=== PATIENT | male | born 1955 | race Caucasian/White ===

== ENCOUNTER 2017-09-10 08:05 | Emergency (ER) | payer MEDICAID ==
[~2017-09-10] VITALS: Ht 172.7 cm; Wt 78.0 kg
[2017-09-10] MEDS ORDERED: PEMB100V IV (08:14)
[2017-09-10] MEDS ORDERED: HYDR25TA PO (08:14)
[2017-09-10] MEDS ORDERED: PANT40TA4 PO (08:14)
[2017-09-10 08:53] LABS: HEMATOCRIT. 40.5 % (42.0-52.0); HEMOGLOBIN. 13.9 g/dL (14.0-18.0); MEAN CORPUSCULAR HEMOGLOBIN 28.5 pg (28.0-32.0); MEAN CORPUSCULAR VOLUME 82.8 fL (80.0-94.0); PLATELET 118 x1000/uL (130-400); RED BLOOD CELL COUNT 4.88 mill/uL (4.7-6.1); RED CELL DISTRIBUTION WIDTH 15.8 % (11.6-14.6)
[2017-09-10 09:12] LABS: CARBON DIOXIDE 30 mEq/L (21-32); CHLORIDE 93 mEq/L (98-107); TROPONIN I < 0.02 ng/mL (0.00-0.04)
[2017-09-10 09:50] LABS: PROTHROMBIN TIME 10.7 sec (9.4-11.6)
[2017-09-10 10:00] LABS: PLATELET ESTIMATE SLIGHTLY DECREASED
[2017-09-10] MEDS ORDERED: SODIUM CHLORIDE 0.9% 1,000 ML IV ONE ×2 (11:30→13:45)
[2017-09-10] MEDS ORDERED: IOHEXOL-350 100 ML BOTTLE ONE (12:35)
[2017-09-10] MEDS ORDERED: DIAZEPAM 5 MG/ML 2ML CPJ IV ONE (13:45)
[2017-09-10] MEDS ORDERED: AZITHROMYCIN 500 MG TABLET PO ONE (16:45)
[2017-09-10 17:28] VITALS: BP 158/76
== END 2017-09-10 17:29 | disposition home or self-care (01) ==
LOC: ER 08:21
DX: J18.9 Pneumonia, unspecified organism (principal); K85.20 Alcohol induced acute pancreatitis without necrosis or infection; R42 Dizziness and giddiness; F10.239 Alcohol dependence with withdrawal, unspecified; E87.1 Hypo-osmolality and hyponatremia; E87.6 Hypokalemia; D72.829 Elevated white blood cell count, unspecified; D69.6 Thrombocytopenia, unspecified; I10 Essential (primary) hypertension; F32.9 Major depressive disorder, single episode, unspecified; Z91.19 Patient's noncompliance with other medical treatment and regimen
CPT/HCPCS: 36415; 70450; 71010; 71275; 80053; 83690; 83880; 84484; 85025; 85379; 85610; 93005; 96360; 96361; 99285; Q9967; Z7610; J7030

== ENCOUNTER 2019-06-03 10:29 | Emergency (ER) | payer MEDICARE, MEDICAID ==
[~2019-06-03] VITALS: Ht 170.2 cm; Wt 75.0 kg
[~2019-06-03 10:29] MED LIST: HYDR25TA PO; PANT40TA4 PO; PEMB100V IV
[2019-06-03] MEDS ORDERED: KETOROLAC 30MG/ML VIAL IV ONE (11:45)
[2019-06-03 11:50] LABS: BASOPHILS % 0.4 % (0.0-2.0); EOSINOPHILS % 0.5 % (0.0-5.0); HEMATOCRIT. 40.7 % (42.0-52.0); HEMOGLOBIN. 14.2 g/dL (14.0-18.0); LYMPHOCYTES % 26.4 % (20.0-50.0); MEAN CORPUSCULAR HEMOGLOBIN 30.6 pg (28.0-32.0); MEAN CORPUSCULAR VOLUME 87.8 fL (80.0-94.0); MEAN PLATELET VOLUME 8.7 fl (7.4-10.4); MONOCYTES % 9.3 % (2.0-8.0); NEUTROPHILS % 63.4 % (40.0-76.0); PLATELET 187 x1000/uL (130-400); RED BLOOD CELL COUNT 4.64 mill/uL (4.7-6.1); RED CELL DISTRIBUTION WIDTH 15.2 % (11.6-14.6)
[2019-06-03 11:54] LABS: CHLORIDE 106 mEq/L (98-107)
[2019-06-03 11:58] LABS: ETHANOL BLOOD 263 mg/dL
[2019-06-03 11:58] LABS: BG BASE EXCESS -1.4 mmol/L (-2.0-2.0); BG CARBOXYHEMOGLOBIN 1.4 % (0.5-1.5); BG DEOXYHEMOGLOBIN 4.1 % (0.0-5.0); BG HCO3 ACT 22.7 mmol/L (22.0-26.0); BG METHEMOGLOBIN 0.1 % (0.0-1.5); BG OXYGEN SATURATION 95.8 % (92.0-98.5); BG OXYHEMOGLOBIN 94.4 % (94.0-97.0); BG PCO2 36.5 mmHg (35.0-45.0); BG PH 7.412 (7.350-7.450); BG SAMPLE SITE RIGHT RADIAL; BG TOTAL HEMOGLOBIN 14.1 g/dL (12.0-18.0); BG VENT MODE ROOM AIR
[2019-06-03 13:15] LABS: *BARBITURATES SCREEN URINE NEGATIVE (NEGATIVE); *BENZODIAZEPINES SCREEN URINE NEGATIVE (NEGATIVE); *COCAINE SCREEN URINE NEGATIVE (NEGATIVE)
[2019-06-03 13:16] LABS: *AMPHETAMINES SCREEN URINE NEGATIVE (NEGATIVE); CANNABINOID URINE SCREEN NEGATIVE (NEGATIVE); METHADONE URINE SCREEN NEGATIVE (NEGATIVE); OPIATES URINE SCREEN NEGATIVE (NEGATIVE); PHENCYCLIDINE URINE SCREEN NEGATIVE (NEGATIVE)
[2019-06-03] MEDS ORDERED: ONDANSETRON 4MG ODT PO STA (14:48)
[2019-06-03] MEDS ORDERED: VISCOUS LIDOCAINE 2% 15 ML UDC PO STA (14:48)
[2019-06-03] MEDS ORDERED: MAGNESIUM/ALUMINUM HYDROXIDE/SIMETHICONE 30ML UDC PO STA ×2 (14:48)
[2019-06-03 15:20] VITALS: BP 150/72
== END 2019-06-03 15:24 | disposition home or self-care (01) ==
LOC: ER 10:29
DX: R07.89 Other chest pain (principal); F10.129 Alcohol abuse with intoxication, unspecified; Y90.0 Blood alcohol level of less than 20 mg/100 ml; I10 Essential (primary) hypertension; I25.2 Old myocardial infarction; Z90.49 Acquired absence of other specified parts of digestive tract; Z79.899 Other long term (current) drug therapy
CPT/HCPCS: 36415; 36600; 71045; 80053; 80305; 80320; 82375; 82805; 83880; 84484; 85025; 93005; 96374; 99284; J1885; Q0162; G0480

== ENCOUNTER 2025-07-27 18:07 | Emergency (ER) | payer OTHER, MEDICAID ==
[~2025-07-27] VITALS: Ht 175.3 cm; Wt 77.0 kg
[~2025-07-27 18:07] MED LIST changes: -PANT40TA4 PO; +PANT40TA51 PO
[2025-07-27 18:16] VITALS: O2SAT 99
[2025-07-27] MEDS: LEVETIRACETAM 500MG PREMIX 100 ML IV ONE (19:21)
[2025-07-27 20:00] VITALS: TEMP 37.2
[2025-07-27 20:05] LABS: HEMATOCRIT. 40.5 % (42.0-52.0); HEMOGLOBIN. 13.4 g/dL (14.0-18.0); MEAN PLATELET VOLUME 9.3 fl (7.4-10.4); PLATELET 223 x1000/uL (130-400); RED BLOOD CELL COUNT 4.73 mill/uL (4.7-6.1); RED CELL DISTRIBUTION WIDTH 14.6 % (11.6-14.6)
[2025-07-27 20:21] LABS: CREATININE 1.1 mg/dL (0.6-1.3); UREA NITROGEN BLOOD 10 mg/dL (9-23)
[2025-07-27 20:23] LABS: ASPARTATE AMINOTRANSFERASE 36 IU/L (<34); BILIRUBIN TOTAL 0.4 mg/dL (0.1-1.0); PROTEIN TOTAL 7.3 g/dL (6.0-8.3)
[2025-07-27 20:43] LABS: BAND% 1.0 % (1.0-6.0); LYMPHOCYTES % MANUAL 8.0 % (20.0-50.0); MONOCYTES % MANUAL 7.0 % (2.0-8.0); NEUTROPHILS % MANUAL 84.0 % (45.0-75.0); PLATELET ESTIMATE NORMAL
[2025-07-27] MEDS ORDERED: LEVE1000 MT (21:17)
[2025-07-27] MEDS: LEVETIRACETAM 500MG TABLET PO ONE (21:46)
[2025-07-27 22:30] VITALS: BP 131/65; PULSE 69; RESP 15; O2SAT 100
== END 2025-07-27 22:32 | disposition home or self-care (01) ==
LOC: EDBD → ER 18:07 → CMPBEDREQ 23:08
DX: G40.909 Epilepsy, unspecified, not intractable, without status epilepticus (principal); I10 Essential (primary) hypertension; Z98.890 Other specified postprocedural states; Z90.49 Acquired absence of other specified parts of digestive tract; Z79.899 Other long term (current) drug therapy
CPT/HCPCS: 99285; 96365; 70450; 71045; 80053; 83605; 83735; 85025; 87040; 36415; 84145; 93005; J1953

== ENCOUNTER 2025-09-14 17:51 | Emergency (ER) | payer OTHER, MEDICAID ==
[~2025-09-14] VITALS: Ht 167.6 cm; Wt 62.0 kg
[~2025-09-14 17:51] MED LIST changes: +LEVE1000 MT
[2025-09-14 17:54] VITALS: O2SAT 100
[2025-09-14] MEDS: LEVETIRACETAM 500MG PREMIX 100 ML IV ONE (18:57)
[2025-09-14 19:21] LABS: BASOPHILS % 0.4 % (0.0-2.0); EOSINOPHILS % 1.1 % (0.0-5.0); HEMATOCRIT. 38.1 % (42.0-52.0); HEMOGLOBIN. 12.6 g/dL (14.0-18.0); LYMPHOCYTES % 10.1 % (20.0-50.0); MEAN PLATELET VOLUME 8.8 fl (7.4-10.4); MONOCYTES % 7.6 % (2.0-8.0); NEUTROPHILS % 80.8 % (40.0-76.0); PLATELET 222 x1000/uL (130-400); RED BLOOD CELL COUNT 4.52 mill/uL (4.7-6.1); RED CELL DISTRIBUTION WIDTH 14.7 % (11.6-14.6)
[2025-09-14 19:30] LABS: CLARITY URINE CLEAR (CLEAR); GLUCOSE URINE NEGATIVE (NEGATIVE); KETONES URINE NEGATIVE (NEGATIVE); LEUKOCYTE ESTERASE URINE NEGATIVE (NEGATIVE); NITRITE URINE NEGATIVE (NEGATIVE); OCCULT BLOOD URINE NEGATIVE (NEGATIVE); PH URINE 6.0 (4.5-8.0); PROTEIN URINE 1+ (NEGATIVE); SPECIFIC GRAVITY URINE 1.009 (1.005-1.030); UROBILINOGEN URINE 0.2 E.U./dL (0.2-1.0)
[2025-09-14 19:44] LABS: CREATININE 1.0 mg/dL (0.6-1.3); ETHANOL BLOOD < 10 mg/dL (<10); UREA NITROGEN BLOOD 11 mg/dL (9-23)
[2025-09-14 19:45] LABS: PROTEIN TOTAL 6.7 g/dL (6.0-8.3)
[2025-09-14 19:46] LABS: ASPARTATE AMINOTRANSFERASE 18 IU/L (<34); BILIRUBIN DIRECT < 0.1 mg/dL (<=3.0); BILIRUBIN TOTAL 0.3 mg/dL (0.1-1.0)
[2025-09-14 19:52] LABS: *AMPHETAMINES SCREEN URINE NEGATIVE (NEGATIVE)
[2025-09-14 19:53] LABS: *BARBITURATES SCREEN URINE NEGATIVE (NEGATIVE); *BENZODIAZEPINES SCREEN URINE NEGATIVE (NEGATIVE); *COCAINE SCREEN URINE NEGATIVE (NEGATIVE); CANNABINOID URINE SCREEN NEGATIVE (NEGATIVE); METHADONE URINE SCREEN NEGATIVE (NEGATIVE); OPIATES URINE SCREEN NEGATIVE (NEGATIVE); PHENCYCLIDINE URINE SCREEN NEGATIVE (NEGATIVE)
[2025-09-14 19:54] LABS: ECSTASY MDMA SCREEN URINE NEGATIVE (NEGATIVE)
[2025-09-14 20:19] LABS: COLOR URINE YELLOW (YELLOW)
[2025-09-14 20:21] LABS: BACTERIA URINE NONE SEEN; MUCUS URINE 1+ /lpf (NONE/TRACE); RBC URINE NONE SEEN /hpf (0-2); SQUAMOUS EPITHELIAL CELL URINE RARE /lpf (RARE/1+); WBC URINE NONE SEEN /hpf (0-2)
[2025-09-14 21:53] VITALS: BP 129/58; PULSE 71; RESP 23; TEMP 37.1; O2SAT 98
== END 2025-09-14 22:40 | disposition home or self-care (01) ==
LOC: ER 17:51 → CMPBEDREQ 09-15 08:39
DX: R56.9 Unspecified convulsions (principal); I10 Essential (primary) hypertension; C78.00 Secondary malignant neoplasm of unspecified lung; C79.31 Secondary malignant neoplasm of brain; Z86.73 Personal history of transient ischemic attack (TIA), and cerebral infarction without residual deficits; Z79.899 Other long term (current) drug therapy
CPT/HCPCS: 80076; 80305; 80048; 81003; 80320; 83735; 85025; 36415; 70450; 93005; 96365; 99285; 82542; J1953; G0480